=== PATIENT | female | born 1950 | race Caucasian/White ===

== ENCOUNTER 2023-09-16 16:10 | Emergency (ER) | payer MEDICARE ==
[~2023-09-16] VITALS: Ht 162.6 cm; Wt 65.2 kg
[2023-09-16 17:26] LABS: URINE BILIRUBIN - DIPSTICK Negative (NEGATIVE); URINE BLOOD DIPSTICK Small (NEGATIVE); URINE GLUCOSE - DIPSTICK Negative (NEGATIVE); URINE KETONE Negative (NEGATIVE); URINE LEUK ESTERASE Negative (NEGATIVE); URINE NITRITE - DIPSTICK Negative (Negative); URINE PH 5.5 (4.5-8.0); URINE PROTEIN - DIPSTICK 30 mg/dL (NEG-TRACE); URINE SPECIFIC GRAVITY >=1.030; URINE UROBILINOGEN - DIPSTICK 0.2 E.U./dL (0.2)
[2023-09-16 17:27] LABS: URINE COLOR Yellow
[2023-09-16 17:28] LABS: BASO% 0.2 % (0-3); EOS% 0.6 % (0-8); HEMATOCRIT 38.5 % (37.0-47.0); HEMOGLOBIN 12.8 g/dl (12.0-16.0); IMMATURE GRANULOCYTES 0.2 % (0.0-5.0); LYMPH% 40.8 % (15-41); MEAN CELL VOLUME 87.7 fL CALC (80.0-100.0); MEAN CORPUSCULAR HGB 29.2 pG CALC (26.0-32.0); MEAN CORPUSCULAR HGB CONC 33.2 g/dL CAL (32.0-36.0); MONO% 15.7 % (2-13); NEUT# 2.06 thou/uL (2.00-7.15); NEUT% 42.5 % (42-76); RED BLOOD COUNT 4.39 mill/uL (4.20-5.60)
[2023-09-16 17:28] LABS: URINE RBC 0-2 RBC/hpf (0-5)
[2023-09-16 17:53] LABS: ALBUMIN 4.7 g/dL (3.2-5.0); ALKALINE PHOSPHATASE 79 u/l (38-126); AMYLASE 52 u/l (30-110); ANION GAP 11 (6-22 (CALC)); BILIRUBIN, TOTAL 0.6 mg/dL (0.02-1.3); BUN 9 mg/dL (8-23); BUN/CREATININE RATIO 13 (12-20 (CALC)); CARBON DIOXIDE 25 mmol/l (22-30); CHLORIDE 111 mmol/l (95-108); CREATININE 0.7 mg/dL (0.5-1.0); GFR FOR AFR.AMER. > 60 ML/MIN (>=60 (CALC)); GFR OTHER RACES > 60 ML/MIN (>=60 (CALC)); LIPASE 106 u/l (23-300); POTASSIUM 3.6 mmol/l (3.5-5.1); SGOT/AST 55 u/l (9-36); SODIUM 144 mmol/l (137-146); TOTAL PROTEIN 7.7 g/dL (6.3-8.2)
[2023-09-16] MEDS ORDERED: metroNIDAZOLE 500 MG/TAB PO ONE (19:45)
[2023-09-16] MEDS ORDERED: CIPROFLOXACIN HCL 500 MG/TAB PO ONE (19:45)
[2023-09-16] MEDS ORDERED: CIPROFLOXACN500 MG PO (19:48)
[2023-09-16] MEDS ORDERED: METRONIDAZOLE500 MG PO (19:48)
[2023-09-16 20:12] VITALS: BP 161/83
== END 2023-09-16 20:22 | disposition home or self-care (01) ==
LOC: ED 16:10
PROVIDERS: Emergency Medicine
DX: A08.0 Rotaviral enteritis (principal); I10 Essential (primary) hypertension; M06.9 Rheumatoid arthritis, unspecified; K57.30 Diverticulosis of large intestine without perforation or abscess without bleeding